=== PATIENT | female | born 1950 | race Two or more races ===

== ENCOUNTER 2019-11-03 13:53 | Outpatient (CLI) | payer OTHER ==
[~2019-11-03] VITALS: Ht 157.5 cm; Wt 68.0 kg
[2019-11-03] MEDS ORDERED: SYNTHROID50 MCG (14:00)
[2019-11-03] MEDS ORDERED: FLONASE16 GM (14:00)
[2019-11-03] MEDS ORDERED: IPRATROPIUM BRO30 ML (14:01)
[2019-11-03] MEDS ORDERED: NASAL MIST126 ML (14:02)
[2019-11-03] MEDS ORDERED: SIMVASTATIN20 MG (14:02)
== END 2019-11-03 16:13 | disposition home or self-care (01) ==
LOC: OFIC 805 13:53
PROVIDERS: ATTEND Otolaryngology
DX: R05 Cough (principal); J45.998 Other asthma; T78.49XA Other allergy, initial encounter

== ENCOUNTER 2024-10-06 09:00 | Inpatient (IN) | payer OTHER ==
[~2024-10-06] VITALS: Ht 157.5 cm; Wt 67.6 kg
[~2024-10-06 09:00] MED LIST: FLONASE16 GM; IPRATROPIUM BRO30 ML; NASAL MIST126 ML; SIMVASTATIN20 MG; SYNTHROID50 MCG
[2024-10-06] MEDS ORDERED: PEPCID AC20 MG (11:36)
[2024-10-06] MEDS ORDERED: OMEPRAZOLE-BIC1 EAC1 (11:36)
[2024-10-06] MEDS ORDERED: XOPENEX HFA15 GM (11:37)
[2024-10-06 11:45] VITALS: BP 131/69
[2024-10-12] MEDS ORDERED: MORPHINE SULFATE 4 MG/ML CARTRIDGE IV PRN (16:45)
[2024-10-12] MEDS ORDERED: OxyCODONE HCL 5 MG TABLET (ROXICODONE) PO PRN (16:45)
[2024-10-12] MEDS ORDERED: ONDANSETRON HCL 2 MG/ML VIAL IV PRN (16:45)
[2024-10-12] MEDS ORDERED: DEXTROSE 50 % IN WATER 0.5 G/ML VIAL IV PRN (16:45)
[2024-10-12] MEDS ORDERED: HYOSCYAMINE SULFATE 0.125 MG TAB.SUBL SL SCH (17:00)
[2024-10-12] MEDS ORDERED: GABAPENTIN 300 MG CAPSULE PO SCH (17:00)
[2024-10-12] MEDS ORDERED: METRONIDAZOLE/SODIUM CHLORIDE 500 MG/100 ML PIGGYBACK IV SCH (17:00)
[2024-10-12] MEDS ORDERED: POLYETHYLENE GLYCOL 3350 17 GM BLIST.PACK PO SCH (17:00)
[2024-10-12] MEDS ORDERED: MORPHINE SULFATE 2 MG/ML CARTRIDGE IV ONE (18:40)
[2024-10-12] MEDS ORDERED: SUGAMMADEX SODIUM 200 MG/2 ML VIAL IV ONE (18:45)
[2024-10-12 19:25] LABS: BASO % 0.2 % (0.1-1.2); EOS # 0.03 (0.04-0.54); EOS % 0.2 % (0.7-7.0); LYMPH # 1.20 (1.18-3.74); LYMPH % 9.1 % (19.3-53.1); MEAN PLATELET VOLUME 10.10 fl (9.4-12.4); MONO # 0.59 (0.24-0.82); MONO % 4.5 % (4.7-12.5); NEUT # 11.35 (1.56-6.13); NEUT % 85.7 % (34.0-71.1); RED CELL DISTRIBUTION WIDTH 12.5 % (11.6-14.4)
[2024-10-12 19:51] LABS: BUN CREA RATIO 11.0 (7.0-25.0); CREATININE SERUM 0.82 mg/dL (0.55-1.02); GFR 68.53; GLUCOSE FASTING 133.0 mg/dL (65-100); OSMOLALITY SERUM 286.0 MOSM/KG (275-295)
[2024-10-12] MEDS ORDERED: ACETAMINOPHEN 500 MG GEL..CAP PO SCH (20:00)
[2024-10-12] MEDS ORDERED: CELECOXIB 200 MG CAPSULE PO SCH (21:00)
[2024-10-12] MEDS ORDERED: FAMOTIDINE/PF 20 MG/2 ML VIAL IV PUSH SCH (21:00)
[2024-10-12] MEDS ORDERED: MORPHINE SULFATE 4 MG/ML VIAL IV ONE (23:10)
[2024-10-13] MEDS ORDERED: MORPHINE SULFATE 4 MG/ML VIAL IV ONE (03:10)
[2024-10-13] MEDS ORDERED: LEVOTHYROXINE SODIUM 50 MCG TABLET PO SCH (06:00)
[2024-10-13 07:02] LABS: BASO % 0.2 % (0.1-1.2); EOS # 0.00 (0.04-0.54); EOS % 0.0 % (0.7-7.0); LYMPH # 0.64 (1.18-3.74); LYMPH % 5.3 % (19.3-53.1); MEAN PLATELET VOLUME 11.80 fl (9.4-12.4); MONO # 0.43 (0.24-0.82); MONO % 3.6 % (4.7-12.5); NEUT # 10.82 (1.56-6.13); NEUT % 90.4 % (34.0-71.1); RED CELL DISTRIBUTION WIDTH 12.3 % (11.6-14.4)
[2024-10-13 07:29] LABS: BUN CREA RATIO 10.0 (7.0-25.0); CREATININE SERUM 0.7 mg/dL (0.55-1.02); GFR 82.25; GLUCOSE FASTING 108.0 mg/dL (65-100); OSMOLALITY SERUM 280.0 MOSM/KG (275-295)
[2024-10-13] MEDS ORDERED: MAGNESIUM SULFATE IN WATER 4 GM/100 ML PIGGYBACK IV NR (16:00)
[2024-10-13 16:15] VITALS: BP 113/58; O2SAT 97
[2024-10-13] MEDS ORDERED: ENOXAPARIN SODIUM 40 MG/0.4 ML SYRINGE SUBCUTANEO SCH (17:00)
[2024-10-14 01:26] VITALS: BP 127/73; O2SAT 97
[2024-10-14 08:00] VITALS: BP 134/60; O2SAT 96
[2024-10-14] MEDS ORDERED: ENOXAPARIN SODIUM 40 MG/0.4 ML SYRINGE SUBCUTANEO SCH (09:00)
[2024-10-14 16:15] VITALS: BP 152/77; O2SAT 97
[2024-10-14] MEDS ORDERED: LEVALBUTEROL HCL 1.25 MG/3 ML SOLUTION IH STA (16:28)
[2024-10-14] MEDS ORDERED: BENZONATATE 100 MG CAPSULE PO SCH (20:05)
[2024-10-14] MEDS ORDERED: GUAIFEN/DEXTROMETHORPHAN/PE 10 ML BLIST.PACK PO PRN (20:15)
[2024-10-14] MEDS ORDERED: BUDESONIDE 0.5 MG/2 ML AMPUL.NEB IH SCH (21:00)
[2024-10-14] MEDS ORDERED: MENTHOL/CETYLPYRD CL 1 LOZENGE MM SCH (21:00)
[2024-10-14] MEDS ORDERED: LORATADINE 10 MG TABLET PO SCH (21:00)
[2024-10-15] MEDS ORDERED: LEVALBUTEROL HCL 1.25 MG/3 ML SOLUTION IH SCH
[2024-10-15 04:44] VITALS: BP 125/64; O2SAT 95
[2024-10-15 06:43] LABS: BASO % 0.4 % (0.1-1.2); EOS # 0.27 (0.04-0.54); EOS % 3.6 % (0.7-7.0); LYMPH # 1.03 (1.18-3.74); LYMPH % 13.8 % (19.3-53.1); MEAN PLATELET VOLUME 10.40 fl (9.4-12.4); MONO # 0.52 (0.24-0.82); MONO % 7.0 % (4.7-12.5); NEUT # 5.59 (1.56-6.13); NEUT % 74.9 % (34.0-71.1); RED CELL DISTRIBUTION WIDTH 12.5 % (11.6-14.4)
[2024-10-15 07:38] LABS: ALT/SGPT 20.0 U/L (12-78); AST/SGOT 13.0 U/L (15-37); BILIRUBIN TOTAL 0.79 mg/dL (0.3-1.2); BILIRUBIN,CONJUGATED 0.12 mg/dL (0.0-0.2); BUN CREA RATIO 13.0 (7.0-25.0); CREATININE SERUM 0.56 mg/dL (0.55-1.02); GFR 106.41; GLOBULINA 2.2 G/DL (2.4-3.5); GLUCOSE FASTING 85.0 mg/dL (65-100); OSMOLALITY SERUM 284.0 MOSM/KG (275-295)
[2024-10-15 08:00] VITALS: BP 145/73; O2SAT 97
[2024-10-15] MEDS ORDERED: PEPCID AC20 MG PO (10:18)
[2024-10-15] MEDS ORDERED: TRAM1TAB98 PO (10:18)
== END 2024-10-15 12:11 | disposition home or self-care (01) | DRG 331 ==
LOC: SURG 10-12 09:00 → O/R 10-12 10:58 → SURG 10-12 17:15 → O/R 10-12 19:38 → SURG 10-13 15:00
PROVIDERS: Internal Medicine; Surgery; ADMIT Surgery; ATTEND Surgery
PROC: 0DBP4ZZ Excision of Rectum, Percutaneous Endoscopic Approach (ICD-10-PCS; 2024-10-12)
PROC: 0DJD8ZZ Inspection of Lower Intestinal Tract, Via Natural or Artificial Opening Endoscopic (ICD-10-PCS; 2024-10-12)
PROC: 0DTN4ZZ Resection of Sigmoid Colon, Percutaneous Endoscopic Approach (ICD-10-PCS; principal; 2024-10-12 17:15)
DX: K57.32 Diverticulitis of large intestine without perforation or abscess without bleeding (principal); R10.32 Left lower quadrant pain